=== PATIENT | male | born 1945 | race Caucasian/White ===

== ENCOUNTER 2020-07-10 11:27 | Emergency (ER) | payer MEDICARE, OTHER ==
--- NOTE | 2020-07-10 12:24 | EDM.PDOC ---
ED HPI GENERAL MEDICAL PROBLEM - General Chief Complaint: Respiratory Problem Stated Complaint: congested chest Time Seen by Provider: 07/10/20 11:33 Source of Information: Reports: Patient History Limitations: Reports: No Limitations - History of Present Illness INITIAL COMMENTS - FREE TEXT/NARRATIVE: Patient sent to ER from [facility] to have deep suction to clear secretions from b ronchial area. History of ALS. Cannot truly cough any more. They are usually able to get the secretions cleared at [facility] but couldn't quite do it today. No acute changes otherwise. Has not had any symptoms of infection/fever/etc. - Related Data Allergies Allergy/AdvReac Type Severity Reaction Status Date / Time No Known Allergies Allergy Verified 07/10/20 11:28 ED ROS GENERAL - Review of Systems Review Of Systems: See Below Constitutional: Reports: Weakness (chronic), Fatigue (chronic). Denies: Fever, Chills, Malaise HEENT: Denies: Throat Swelling Respiratory: Reports: Other (bronchial secretions/chronic/difficult to clear today). Denies: Wheezing, Pleuritic Chest Pain Cardiovascular: Denies: Chest Pain GI/Abdominal: Denies: Abdominal Pain, Diarrhea, Nausea, Vomiting Neurological: Reports: Weakness (chronic) ED EXAM, GENERAL - Physical Exam Exam: See Below Exam Limited By: No Limitations General Appearance: Alert, No Apparent Distress, Thin Eye Exam: Bilateral Eye: EOMI, PERRL Ears: Hearing Grossly Normal Nose: No: Nasal Flaring Throat/Mouth: Normal Lips, Normal Voice Head: Atraumatic, Normocephalic Neck: Supple Respiratory/Chest: Rhonchi. No: Wheezing, Accessory Muscle Use, Retractions Cardiovascular: Tachycardia GI/Abdominal: Soft, Non-Tender, No Distention (Male) Exam: Deferred Rectal (Males) Exam: Deferred Extremities: Normal Capillary Refill Neurological: Alert, Oriented, Normal Cognition Psychiatric: Normal Affect, Normal Mood Skin Exam: Warm, Dry, Intact, Normal Color Course - Vital Signs Last Recorded V/S: Last Vital Signs Temp 36.6 C 07/10/20 11:29 Pulse 110 H 07/10/20 11:29 Resp 28 H 07/10/20 11:29 BP 125/89 07/10/20 11:29 Pulse Ox 93 L 07/10/20 11:29 - Re-Assessments/Exams Free Text/Narrative Re-Assessment/Exam: 07/10/20 14:28 Nursing staff performed several attempts at suction with very good results. Patient felt back to baseline/much improved. Does say that his heart rate "runs high" and it appears that the 100-105 pulse is normal for him. Continues to deny any other acute changes. Happily engaged in conversation regarding football and favorite teams and players. No further work up indicated at this time. To follow up as needed if any new changes/problems develop. Departure - Departure Time of Disposition: 12:23 Disposition: DC/Tfer to SNF 03 Condition: Good Clinical Impression: Difficulty clearing secretions - Discharge Information *PRESCRIPTION DRUG MONITORING PROGRAM REVIEWED*: Not Applicable *COPY OF PRESCRIPTION DRUG MONITORING REPORT IN PATIENT DONNA: Not Applicable Referrals: Eufemia Luz PA [Primary Care Provider] - Forms: ED Department Discharge Additional Instructions: Follow up as needed if condition changes/problem returns Sepsis Event Note (ED) - Evaluation Sepsis Screening Result: No Definite Risk - Focused Exam Vital Signs: Vital Signs Temp Pulse Resp BP Pulse Ox 07/10/20 11:29 36.6 C 110 H 28 H 125/89 93 L
== END 2020-07-10 13:00 ==
LOC: LL.ED 11:27
DX: R91.8 Other nonspecific abnormal finding of lung field (principal); R00.0 Tachycardia, unspecified
CPT/HCPCS: 99283

== ENCOUNTER 2020-07-24 15:18 | Emergency (ER) | payer MEDICARE, OTHER ==
--- NOTE | 2020-07-24 15:46 | EDM.PDOC ---
ED HPI GENERAL MEDICAL PROBLEM - General Chief Complaint: Abdominal Pain Stated Complaint: esau moura, constipation Time Seen by Provider: 07/24/20 15:35 Source of Information: Reports: Patient History Limitations: Reports: No Limitations - History of Present Illness INITIAL COMMENTS - FREE TEXT/NARRATIVE: Patient sent here due to abdominal discomfort present for approx one week. No good bowel movement for two weeks. Had suppository and only a few small hard pieces stool passed. Nurse at [facility] apparently 'didn't want do' enema to see if that would help and instead sent him to the ER today. He has had similar episode in past that was determined to be due to constipation that eventually cleared. Mild nausea. No fevers/chills. No HEENT changes. No new SOB/cough/wheeze. Always has some difficulty breathing due to weakness from ALS. No vomiting. No passing of blood. No other new pain complaint. ALS symptoms stable. Patient tachycardic. Reports usual pulse at rest is 100-105 Abdominal Pain Score (Numeric/FACES): 10 - Related Data Allergies Allergy/AdvReac Type Severity Reaction Status Date / Time No Known Allergies Allergy Verified 07/24/20 15:37 Past Medical History HEENT History: Reports: Allergic Rhinitis, Cataract, Glaucoma, Other (See Below) Other HEENT History: nasal congestion, dry mouth Gastrointestinal History: Reports: GERD, Other (See Below) Other Gastrointestinal History: colitis Musculoskeletal History: Reports: Back Pain, Chronic, Other (See Below) Other Musculoskeletal History: muscle weakness, ALS, Quadriplegia, muscle spasm Neurological History: Reports: Other (See Below) Other Neuro History: idiopathic neuropathies,restless legs,ALS Psychiatric History: Reports: Anxiety, Depression, Other (See Below) Other Psychiatric History: anorexia, insomnia Hematologic History: Reports: Anemia Oncologic (Cancer) History: Reports: Other (See Below) 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 Denies: Fever HEENT: Denies: Sinus Problem, Throat Pain, Vision Change Respiratory: Reports: Shortness of Breath (chronic/unchanged). Denies: Wheezing, Pleuritic Chest Pain, Cough, Sputum, Hemoptysis Cardiovascular: Denies: Chest Pain, Palpitations, Syncope GI/Abdominal: Reports: Abdominal Pain (all quadrants), Constipation, Decreased Appetite, Difficulty Swallowing (chronic), Mucous in Stool. Denies: Distension, Hematemesis, Hematochezia, Vomiting : Reports: No Symptoms Musculoskeletal: Reports: Other (no acute changes from baseline) Skin: Reports: No Symptoms Neurological: Reports: Pre-Existing Deficit (ALS), Weakness (chronic). Denies: Change in Speech Psychiatric: Reports: No Symptoms ED EXAM, GENERAL - Physical Exam Exam: See Below Exam Limited By: Other (Patient sitting in wheelchair.) General Appearance: Alert, No Apparent Distress, Thin Eye Exam: Bilateral Eye: EOMI, PERRL Ears: Hearing Grossly Normal Nose: No: Nasal Deformity, Nasal Swelling, Nasal Drainage Throat/Mouth: Normal Lips, Normal Voice, No Airway Compromise Head: Atraumatic, Normocephalic Neck: Supple Respiratory/Chest: No Respiratory Distress, Lungs Clear Cardiovascular: No Murmur, Tachycardia GI/Abdominal: Tender (tender per patient all 4 quadrants), Abnormal Bowel Sounds (diminished). No: Guarding, Rigid, Rebound (Male) Exam: Deferred Rectal (Males) Exam: Deferred Back Exam: No: CVA Tenderness (L), CVA Tenderness (R) Extremities: Normal Capillary Refill Neurological: Alert, Oriented, Normal Cognition, Other (generalized weakness and muscle wasting from ALS) Psychiatric: Normal Affect, Normal Mood Skin Exam: Warm, Dry, Intact, Normal Color Course - Vital Signs Last Recorded V/S: Last Vital Signs Temp 37.0 C 07/24/20 15:18 Pulse 120 H 07/24/20 15:18 Resp 20 07/24/20 15:18 BP 113/86 07/24/20 15:18 Pulse Ox 92 L 07/24/20 15:18 - Orders/Labs/Meds Orders: Active Orders 24 hr Category Date Time Status Abdomen 1V Upright [CR] Stat Exams 07/24/20 15:23 Ordered CBC WITH AUTO DIFF [HEME] Stat Lab 07/24/20 15:41 Ordered COMPREHENSIVE METABOLIC PN,CMP [CHEM] Stat Lab 07/24/20 15:41 Ordered LACTIC ACID [CHEM] Stat Lab 07/24/20 15:41 Ordered - Re-Assessments/Exams Free Text/Narrative Re-Assessment/Exam: 07/24/20 15:50 Upright abdomen xray obtained while patient sitting in wheelchair. Air/fluid levels noted, gaseous distention. Abdominal palpation reveals diffuse tenderness, however no guarding/rebound noted. 07/24/20 16:01 Discussed films with Radiology and they agree that current xray is consistent with patient's story of not having good bowel movement for two weeks. Agreed that next step would be to have patient receive enema(s) to promote bowel movement. Recommended to have repeat imaging in 48 hours to see if things have improved. Consider CT if problem worsens despite this course of therapy. Patient is relatively immobile due to his ALS and is also on daily morphine,both of which contribute to his chronic constipation. Departure - Departure Time of Disposition: 16:07 Disposition: DC/Tfer to SNF 03 Condition: Good Clinical Impression: Constipation Qualifiers: Constipation type: unspecified constipation type Qualified Code(s): K59.00 - Constipation, unspecified - Discharge Information *PRESCRIPTION DRUG MONITORING PROGRAM REVIEWED*: Not Applicable *COPY OF PRESCRIPTION DRUG MONITORING REPORT IN PATIENT DONNA: Not Applicable Referrals: Eufemia Luz PA [Primary Care Provider] - Additional Instructions: Recommend changing Miralax to once a day. Patient NEEDS to work with OT to develop a system for him to be able to access and drink water FREELY in order to stay hydrated. He cannot use his hands and currently has been relying on staff to offer to assist whenever he needs to drink. This is unfair to the patient and he reports that he is not getting enough to drink on a daily basis. Chronic dehydration contributes to chronic constipation. Miralax will not work if you don't drink enough water. Soap suds enema tonight when he returns to [facility]. Repeat it 1 hour later. Repeat it again tomorrow morning after breakfast. OK to make PRN order for soap suds enema once every three days as needed for constipation. He is to drink one bottle of Mag Citrate when he gets back tonight to help promote bowel movement. If symptoms improve he is to have follow up xray Saturday to recheck appearance of abdomen. Arrange for this with primary provider. If current plan does not work and symptoms continue will need to look at abdominal/pelvic CT and further workup. May need to consider endoscopy to rule out cancerous lesion/colon pathology. Sepsis Event Note (ED) - Evaluation Sepsis Screening Result: No Definite Risk - Focused Exam Vital Signs: Vital Signs Temp Pulse Resp BP Pulse Ox 07/24/20 15:18 37.0 C 120 H 20 113/86 92 L - My Orders Last 24 Hours: My Active Orders 07/24/20 15:23 Abdomen 1V Upright [CR] Stat 07/24/20 15:41 CBC WITH AUTO DIFF [HEME] Stat COMPREHENSIVE METABOLIC PN,CMP [CHEM] Stat LACTIC ACID [CHEM] Stat - Assessment/Plan Last 24 Hours: My Active Orders 07/24/20 15:23 Abdomen 1V Upright [CR] Stat 07/24/20 15:41 CBC WITH AUTO DIFF [HEME] Stat COMPREHENSIVE METABOLIC PN,CMP [CHEM] Stat LACTIC ACID [CHEM] Stat
[2020-07-24] MEDS ORDERED: Magnesium Citrate Solution 296 ML Bottle PO ONE (16:07)
== END 2020-07-24 16:55 ==
LOC: LL.ED 15:18
DX: K59.00 Constipation, unspecified (principal); R00.0 Tachycardia, unspecified; R53.1 Weakness
CPT/HCPCS: 74018; 99284; A9270; 99283

== ENCOUNTER 2020-08-09 04:43 | Emergency (ER) | payer MEDICARE, OTHER ==
[2020-08-09] MEDS ORDERED: Sodium Chloride 0.9% 10 ML Syringe FLUSH PRN (05:10)
--- NOTE | 2020-08-09 05:59 | EDM.PDOC ---
ED HPI GENERAL MEDICAL PROBLEM - General Chief Complaint: General Stated Complaint: unable to cough up mucous Time Seen by Provider: 08/09/20 04:45 Source of Information: Reports: Patient, EMS, [facility] Records, Old Records ([facility] EMR. No paper hospital chart available.). Denies: EMS Notes Reviewed (Not available at time of dictation) History Limitations: Reports: No Limitations - History of Present Illness INITIAL COMMENTS - FREE TEXT/NARRATIVE: The patient was brought to the emergency room via ambulance with bankruptcy legal assistant accompaniment with O2 sat of 88 to 89% on room air prior to transfer and 2 L of O2 applied by the bankruptcy legal assistant prior to transfer. The patient has had been having some increasing oral mucus and difficulty breathing secondary to his ALS over the last couple of days with progressive symptoms throughout the day. Note that the patient did have a CT scan in this facility on 08/08 with aspiration pneumonia diagnosed during that evaluation. He has not been placed on antibiotics to this point. The patient denies any chest pain/pressure, heart flutter, dizziness, orthostasis, orthopnea, diaphoresis, paresthesias, recent decreased exercise tolerance, or any other anginal-type symptoms, although note paraplegia secondary to his ALS with no significant activity. No recent history of abdominal pain, heartburn, nausea, diarrhea, melena, gross hematochezia, or any food intolerance, including fatty foods, etc.. He denies any gross hematuria, colic, or other UTI symptoms. The patient also denies any recent fever, wheezing, etc.. He denies any specific pain or discomfort. Onset: Gradual, Unknown/Unsure Onset Date: 08/07/20 Duration: Getting Worse Location: Reports: Other (No pain) Quality: Reports: Same as Previous Episode Improves with: Reports: None Worsens with: Reports: None Context: Reports: Other (As above). Denies: Sick Contact, Trauma Associated Symptoms: Reports: Cough, Shortness of Breath, Weakness (Stable paraplegia). 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 Denies: Hard of Hearing, Impaired Vision, Macular Degeneration, Otitis Media, Retinal Detachment Other HEENT History: Sicca syndrome. Preglaucoma. Cardiovascular History: Denies: Afib, Aneurysm, Arrhythmia, Blood Clots/VTE/DVT, CAD, Heart Failure, Heart Murmur, High Cholesterol, Hypertension, PA, PVD, Syncope Respiratory History: Reports: Pneumonia, Recurrent, Other (See Below). Denies: Asthma, COPD, PE, Pneumothorax, Sleep Apnea, TB Other Respiratory History: Aspiration pneumonia. Gastrointestinal History: Reports: Chronic Constipation, Fecal Incontinence, GERD, Other (See Below). Denies: Bowel Obstruction, Celiac Disease, Cholelithiasis, Colon Polyp, Gastritis, GI Bleed, Inflammatory Bowel Disease, Irritable Bowel Syndrome, PUD Other Gastrointestinal History: Severe constipation secondary to his ALS. History of colitis. Dysphagia secondary to ALS. Genitourinary History: Reports: BPH, Renal Calculus, Retention, Urinary, Urinary Incontinence, Other (See Below). Denies: Acute Renal Failure, Chronic Renal Insuffiency, UTI, Recurrent Other Genitourinary History: Left-sided nephrolithiasis by CT scan in August 2020. Musculoskeletal History: Reports: Arthritis, Back Pain, Chronic, Fracture, Neck Pain, Chronic, Osteoarthritis, Other (See Below). Denies: Gout, RA Other Musculoskeletal History: Diffuse muscular atrophy secondary to ALS. Right distal leg/ankle fracture in December 2013 with surgery as below. Neurological History: Reports: Other (See Below). Denies: Cerebral Aneurysms, Concussion, CVA, Headaches, Chronic, Head Trauma, Migraines, MS, Parkinson's, Seizure, TIA Other Neuro History: idiopathic neuropathies, restless legs, ALS with symptoms beginning in 2013 and final diagnosis in 2019. Psychiatric History: Reports: Anxiety, Depression, Other (See Below). Denies: Abuse, Victim of, ADD, ADHD, Addiction, Psych Hospitalization(s), PTSD, Suicide Attempt, Suicidal Ideation Other Psychiatric History: anorexia, insomnia Endocrine/Metabolic History: Reports: Other (See Below). 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 Hematologic History: Reports: Anemia Oncologic (Cancer) History: Reports: Other (See Below). 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 - Infectious Disease History Infectious Disease History: Reports: Chicken Pox, Measles, Mumps, Rubella. Denies: C-Difficile, Meningitis, Mononucleosis, MRSA, Novel Coronavirus, Pertussis (Whooping Cough), Rheumatic Fever, Scarlet Fever, Shingles, TB, VRE - Past Surgical History Head Surgeries/Procedures: Reports: None HEENT Surgical History: Reports: Cataract Surgery, Oral Surgery, Other (See Below). Denies: Adenoidectomy, Eye Surgery, LASIK, Myringotomy w Tube(s), Naso- Sinus Surgery, Tonsillectomy Other HEENT Surgeries/Procedures: Complete teeth extraction. Bilateral cataract surgery in 2019. Cardiovascular Surgical History: Reports: None. Denies: Varicose Respiratory Surgical History: Reports: None. Denies: Thoracentesis GI Surgical History: Reports: Hernia Repair/Other, Other (See Below). Denies: Appendectomy, Cholecystectomy, Colonoscopy, EGD, Hernia, Abdominal, Hernia, Inguinal, Polypectomy Other GI Surgeries/Procedures: Umbilical hernia repair at age 7. Male Surgical History: Reports: None. Denies: Circumcision, TURP-Transurethral Resection of Prostate, Vasectomy Endocrine Surgical History: Reports: None. Denies: Thyroid Biopsy Neurological Surgical History: Reports: None. Denies: C-Spine, Discectomy, Laminectomy, Lumbar Spine, Scoliosis, Spinal Fusion, Thoracic Spine, Vertebroplasty Musculoskeletal Surgical History: Reports: ORIF, Other (See Below). Denies: Carpal Tunnel, Ganglion Cyst, Joint Replacement, Shoulder Surgery Other Musculoskeletal Surgeries/Procedures:: ORIF of right leg/ankle fracture in December 2013. Oncologic Surgical History: Reports: None Dermatological Surgical History: Reports: None - Past Imaging History Past Imaging History: Reports: CAT Scan (CT scan of the abdomen pelvis on 08/08/2020.) Social & Family History - Family History Family Medical History: No Pertinent Family History - Tobacco Use Tobacco Use Status *Q: Former Tobacco User Tobacco Use Within Last Twelve Months: No Years of Tobacco use: 38 Packs/Tins Daily: 1 Packs/Tins Daily Comment: Smoked between ages 18 and 56. Used Tobacco, but Quit: Yes Smoking Cessation Information Provided To Patient: No Second Hand Smoke Exposure: No Second Hand Smoke Education Provided: No - Caffeine Use Caffeine Use: Reports: Coffee (2 cups/day). Denies: Energy Drinks, Soda, Tea - Alcohol Use Alcohol Use History: Yes Days Per Week of Alcohol Use: 0 Number of Drinks Per Day Comment: Previous daily sixpack of beer with patient denying any previous problems with alcohol, DWIs, etc. Alcohol Use in Last Twelve Months: No - Recreational Drug Use Recreational Drug Use: No Drug Use in Last 12 Months: No Recreational Drug Type: Denies: Amphetamines (Speed), Cocaine, Dextromethorphan (Cough Syrup), Heroin, Inhalants (Glues, Solvents, Aerosols), LSD (Acid), Marijuana/Hashish, Methamphetamine, Morphine, Oxycodone - Living Situation & Occupation Living situation: Reports: (1993, 2 children), Extended Care Facility ([facility]) Occupation: Retired ED ROS GENERAL - Review of Systems Review Of Systems: Comprehensive ROS is negative, except as noted in HPI. ED EXAM, GENERAL - Physical Exam Exam: See Below Exam Limited By: No Limitations General Appearance: Alert, WD/WN, No Apparent Distress, Cachetic (Mild cachexia with moderate diffuse muscular atrophy) Eye Exam: Bilateral Eye: EOMI, Normal Inspection (No nystagmus), PERRL Ears: Normal External Exam, Normal Canal, Hearing Grossly Normal, Normal TMs Nose: Normal Inspection, Normal Mucosa, No Blood Throat/Mouth: Normal Inspection, Normal Lips, Normal Gums, Normal Oropharynx, Normal Voice, No Airway Compromise, Dysphagia, Other (Moderate mucus in the oral cavity which was suctioned). No: Normal Teeth (Complete absent dentition with no dentures today), Perioral Cyanosis Head: Atraumatic, Normocephalic. No: Facial Swelling, Facial Tenderness, Sinus Tenderness Neck: Supple, Non-Tender, Full Range of Motion, Carotid Bruit (Mild bilateral carotid bruits). No: Lymphadenopathy (L), Lymphadenopathy (R), Thyromegaly Respiratory/Chest: No Respiratory Distress, No Accessory Muscle Use, Chest Non- Tender, Rales (Mild bilateral basilar rales). No: Rhonchi, Wheezing, Pleural Rub, Retractions Cardiovascular: Normal Peripheral Pulses, Regular Rate, Rhythm, No Edema, No Gallop, No JVD, No Murmur, No Rub. No: Gallop/S3, Gallop/S4, Friction Rub Peripheral Pulses: 2+: Radial (L), Radial (R), Dorsalis Pedis (L), Dorsalis Pedis (R) GI/Abdominal: Normal Bowel Sounds, Soft, Non-Tender, No Organomegaly, No Distention, No Abnormal Bruit, No Mass. No: Guarding (Male) Exam: Deferred Rectal (Males) Exam: Deferred Back Exam: Normal Inspection. No: Full Range of Motion (Note ALS), CVA Tenderness (L), CVA Tenderness (R), Muscle Spasm (Ductogram okay STAT READ with verbal telephone report from radiologist to this provider sincerely requested. Problem) Extremities: Non-Tender, No Pedal Edema, Normal Capillary Refill, Other (Diffuse muscular atrophy secondary to ALS.). No: Normal Range of Motion (ALS), Herrera's Sign Neurological: Alert, Oriented, CN II-XII Intact, Normal Cognition, Normal Reflexes (Negative Babinski's). No: Normal Gait (Quadriplegia secondary ALS), No Motor/Sensory Deficits (ALS as above) Psychiatric: Normal Affect, Normal Mood Skin Exam: Warm, Dry, Intact, Normal Color, No Rash. No: Diaphoretic, Wound/Incision Lymphatic: No Adenopathy Course - Vital Signs Last Recorded V/S: Last Vital Signs Temp 36.9 C 08/09/20 07:13 Pulse 102 H 08/09/20 07:48 Resp 18 08/09/20 07:48 BP 110/73 08/09/20 07:13 Pulse Ox 94 L 08/09/20 07:48 Vital Signs - 24 hr 08/09/20 08/09/20 08/09/20 04:44 05:19 05:20 Temperature [ 36.6 C Temporal] Pulse, 103 H 99 Peripheral [ Left Pulse Oximetry] Respiratory 20 20 Rate Blood Pressure 107/69 111/73 [Left Upper Arm ] O2 Sat by Pulse 92 L 90 L Oximetry O2 Sat by Pulse 90 L Oximetry [Room Air] 08/09/20 08/09/20 08/09/20 05:36 05:51 06:06 Temperature [ Temporal] Pulse, 103 H 94 94 Peripheral [ Left Pulse Oximetry] Respiratory 20 20 20 Rate Blood Pressure 105/62 105/68 110/68 [Left Upper Arm ] O2 Sat by Pulse 93 L 94 L 94 L Oximetry O2 Sat by Pulse Oximetry [Room Air] 08/09/20 08/09/20 08/09/20 06:36 06:51 07:06 Temperature [ Temporal] Pulse, 102 H 93 94 Peripheral [ Left Pulse Oximetry] Respiratory 20 20 20 Rate Blood Pressure 111/73 110/73 113/71 [Left Upper Arm ] O2 Sat by Pulse 94 L 93 L 94 L Oximetry O2 Sat by Pulse Oximetry [Room Air] 08/09/20 08/09/20 07:13 07:48 Temperature [ 36.9 C Temporal] Pulse, 99 102 H Peripheral [ Left Pulse Oximetry] Respiratory 20 18 Rate Blood Pressure 110/73 [Left Upper Arm ] O2 Sat by Pulse 92 L 94 L Oximetry O2 Sat by Pulse Oximetry [Room Air] - Orders/Labs/Meds Orders: Active Orders 24 hr Category Date Time Status Cardiac Monitoring [RC] CONTINUOUS Care 08/09/20 05:11 Active Communication Order [RC] ROUTINE Care 08/09/20 05:16 Active Oxygen Therapy, ED [RC] CONTINUOUS Care 08/09/20 05:11 Active Peripheral IV Care [RC] . DIRECTED Care 08/09/20 05:11 Active Pulse Oximetry [RC] CONTINUOUS Care 08/09/20 05:11 Active Up With Assistance [RC] ASDIRECTED Care 08/09/20 05:11 Active Nothing Per Oral Diet [DIET] Diet 08/09/20 Breakfast Active Chest 1V Frontal [CR] Stat Exams 08/09/20 05:11 Taken CULTURE BLOOD [BC] Stat Lab 08/09/20 05:30 Received CULTURE BLOOD [BC] Stat Lab 08/09/20 06:45 Received Sodium Chloride 0.9% [Saline Flush] Med 08/09/20 05:10 Active 10 ml FLUSH ASDIRECTED PRN Blood Culture x2 Reflex Set [OM.PC] Urgent Oth 08/09/20 06:40 Ordered Obtain Past Medical Record [OM.PC] Stat Oth 08/09/20 05:11 Active Peripheral IV Insertion Adult [OM.PC] Stat Oth 08/09/20 05:11 Ordered Resuscitation Status Routine Resus Stat 08/09/20 05:10 Ordered Medication Orders Sodium Chloride (Saline Flush) 10 ml FLUSH ASDIRECTED PRN PRN Reason: Keep Vein Open Labs: Laboratory Tests 08/09/20 08/09/20 08/09/20 Range/Units 05:30 05:30 05:30 WBC 15.3 H (4.0-10.2) K/uL RBC 4.46 (4.33-5.41) M/uL Hgb 13.5 D (13.1-16.8) g/dL Hct 42.6 (39.0-49.0) % MCV 95.5 (84.0-98.0) fL MCH 30.3 (28.2-33.3) pg MCHC 31.7 (31.7-36.0) g/dL RDW 13.8 (11.2-14.1) % Plt Count 253 (150-350) K/uL Neut % (Auto) 82.2 H (45.0-80.0) % Lymph % (Auto) 8.6 L (10.0-50.0) % [place] % (Auto) 9.0 (2.0-14.0) % Eos % (Auto) 0.1 (0.0-5.0) % Baso % (Auto) 0.1 (0.0-2.0) % Neut # (Auto) 12.61 H (1.40-7.00) K/uL Lymph # (Auto) 1.32 (0.50-3.50) K/uL [place] # (Auto) 1.38 H (0.00-1.00) K/uL Eos # (Auto) 0.01 (0.00-0.50) K/uL Baso # (Auto) 0.02 (0.00-0.20) K/uL Sodium 138 (136-145) mmol/L Potassium 4.0 (3.5-5.1) mmol/L Chloride 101 (98-107) mmol/L Carbon Dioxide 27.7 (21.0-32.0) mmol/L BUN 12 (7-18) mg/dL Creatinine 0.34 L (0.51-1.17) mg/dL Est Cr Clr Drug Dosing 176.10 mL/min Estimated GFR (MDRD) > 60 mL/min Glucose 95 (74-106) mg/dL Lactic Acid 0.7 (0.4-2.0) mmol/L Calcium 8.5 (8.5-10.1) mg/dL Magnesium 2.1 (1.8-2.4) mg/dL Total Bilirubin 1.6 H (0.2-1.0) mg/dL Direct Bilirubin (0.0-0.2) mg/dL Indirect Bilirubin mg/dL AST 15 (15-37) U/L ALT 10 L (12-78) U/L Alkaline Phosphatase 77 (46-116) IU/L Total Protein 6.8 (6.4-8.2) g/dL Albumin 3.1 L (3.4-5.0) g/dL TSH, Ultra Sensitive 0.962 (0.358-3.740) mIU/mL 08/09/20 Range/Units 05:30 WBC (4.0-10.2) K/uL RBC (4.33-5.41) M/uL Hgb (13.1-16.8) g/dL Hct (39.0-49.0) % MCV (84.0-98.0) fL MCH (28.2-33.3) pg MCHC (31.7-36.0) g/dL RDW (11.2-14.1) % Plt Count (150-350) K/uL Neut % (Auto) (45.0-80.0) % Lymph % (Auto) (10.0-50.0) % [place] % (Auto) (2.0-14.0) % Eos % (Auto) (0.0-5.0) % Baso % (Auto) (0.0-2.0) % Neut # (Auto) (1.40-7.00) K/uL Lymph # (Auto) (0.50-3.50) K/uL [place] # (Auto) (0.00-1.00) K/uL Eos # (Auto) (0.00-0.50) K/uL Baso # (Auto) (0.00-0.20) K/uL Sodium (136-145) mmol/L Potassium (3.5-5.1) mmol/L Chloride (98-107) mmol/L Carbon Dioxide (21.0-32.0) mmol/L BUN (7-18) mg/dL Creatinine (0.51-1.17) mg/dL Est Cr Clr Drug Dosing mL/min Estimated GFR (MDRD) mL/min Glucose (74-106) mg/dL Lactic Acid (0.4-2.0) mmol/L Calcium (8.5-10.1) mg/dL Magnesium (1.8-2.4) mg/dL Total Bilirubin 1.6 H (0.2-1.0) mg/dL Direct Bilirubin 0.4 H (0.0-0.2) mg/dL Indirect Bilirubin 1.2 mg/dL AST (15-37) U/L ALT (12-78) U/L Alkaline Phosphatase (46-116) IU/L Total Protein (6.4-8.2) g/dL Albumin (3.4-5.0) g/dL TSH, Ultra Sensitive (0.358-3.740) mIU/mL Meds: Medications Generic Name Dose Route Start Last Admin Trade Name Freq PRN Reason Stop Dose Admin Sodium Chloride 10 ml 08/09/20 05:10 Saline Flush FLUSH ASDIRECTED PRN Keep Vein Open Discontinued Medications Generic Name Dose Route Start Last Admin Trade Name Freq PRN Reason Stop Dose Admin Ceftriaxone Sodium 1 gm/ 100 mls @ 200 mls/hr 08/09/20 06:41 08/09/20 07:05 Sodium Chloride IV 08/09/20 07:10 200 mls/hr ONETIME ONE Administration - Radiology Interpretation Free Text/Narrative:: Chest x-ray, portable, shows evidence of moderate cardiomegaly with mild left lower lobe pulmonary infiltrates and possible COPD changes with no pneumothorax, CHF, etc. Departure - Departure Time of Disposition: 08:03 Disposition: DC/Tfer to Acute Hospital 02 Condition: Fair Clinical Impression: ALS (amyotrophic lateral sclerosis), Peptic reflux disease, Mixed anxiety depressive disorder, Hyperbilirubinemia, Hypoalbuminemia Constipation Qualifiers: Constipation type: slow transit constipation Qualified Code(s): K59.01 - Slow transit constipation Aspiration pneumonia Qualifiers: Aspiration pneumonia type: due to regurgitated food Laterality: bilateral Lung location: lower lobe of lung Qualified Code(s): J69.0 - Pneumonitis due to inhalation of food and vomit Osteoarthritis Qualifiers: Osteoarthritis location: multiple joints Osteoarthritis type: primary Qualified Code(s): M89.49 - Other hypertrophic osteoarthropathy, multiple sites - Discharge Information *PRESCRIPTION DRUG MONITORING PROGRAM REVIEWED*: Not Applicable *COPY OF PRESCRIPTION DRUG MONITORING REPORT IN PATIENT DONNA: Not Applicable Referrals: PCP,None [Primary Care Provider] - Forms: ED Department Discharge, Interfacility Transfer EMTALA Sepsis Event Note (ED) - Evaluation Sepsis Screening Result: No Definite Risk - Focused Exam Vital Signs: Vital Signs Temp Pulse Resp BP Pulse Ox Pulse Ox 08/09/20 07:48 102 H 18 94 L 08/09/20 07:13 36.9 C 99 20 110/73 92 L 08/09/20 07:06 94 20 113/71 94 L 08/09/20 06:51 93 20 110/73 93 L 08/09/20 06:36 102 H 20 111/73 94 L 08/09/20 06:06 94 20 110/68 94 L 08/09/20 05:51 94 20 105/68 94 L 08/09/20 05:36 103 H 20 105/62 93 L 08/09/20 05:20 99 20 111/73 90 L 08/09/20 05:19 90 L 08/09/20 04:44 36.6 C 103 H 20 107/69 92 L - Problem List & Annotations (1) Aspiration pneumonia SNOMED Code(s): 933208680 Code(s): J69.0 - PNEUMONITIS DUE TO INHALATION OF FOOD AND VOMIT Status: Acute Priority: High Current Visit: Yes Onset Date: ~08/08/20 Annotation/Comment:: Patient was suctioned frequently with persistent hypoxia of 88-89% on room air after this suctioning consistent with findings prior to transfer to this facility. O2 saturations were excellent with 2 L/min by nasal cannula. Note incidental finding of probable bilateral aspiration pneumonia per radiological report of CT scan of the abdomen pelvis on 08/08/2020. Antibiotics had not been started to this point. Blood cultures x2 were drawn with initiation of IV Rocephin thereafter with this therapy to be continued in route by the paramedics. Initial telephone consultation at 6:10 AM and then again at 6:29 AM with the housekeeping manager at the [facility] with no bed available at this time. Subsequent telephone consultation at 6:[address] Bass, hospitalist at [facility] in [place], who does accept the patient for direct admission, with no further treatment recommendations given. Ambulance transfer with bankruptcy legal assistant accompaniment to their [place] campus. Vital signs and clinical exam were stable at time of patient's transfer. Note normal lactic acid level with no clinical evidence of sepsis despite leukocytosis. Qualifiers: Aspiration pneumonia type: due to regurgitated food Laterality: bilateral Lung location: lower lobe of lung Qualified Code(s): J69.0 - Pneumonitis due to inhalation of food and vomit (2) ALS (amyotrophic lateral sclerosis) SNOMED Code(s): 68817343 Code(s): G12.21 - AMYOTROPHIC LATERAL SCLEROSIS Status: Acute Priority: Medium Current Visit: Yes Annotation/Comment:: Stable by history. Note that the patient does have problems clearing his oral secretions with persistent hypoxia despite suctioning as above. Neurological status otherwise stable. (3) Constipation SNOMED Code(s): 63511904 Code(s): K59.00 - CONSTIPATION, UNSPECIFIED Status: Chronic Priority: Medium Current Visit: Yes Annotation/Comment:: Note CT scan of the abdomen and pelvis on 08/08/2020. Stable by history. Qualifiers: Constipation type: slow transit constipation Qualified Code(s): K59.01 - Slow transit constipation (4) Mixed anxiety depressive disorder SNOMED Code(s): 375453655 Code(s): F41.8 - OTHER SPECIFIED ANXIETY DISORDERS Status: Chronic Priority: Medium Current Visit: Yes Annotation/Comment:: Stable by history (5) Osteoarthritis SNOMED Code(s): 641219004 Code(s): M19.90 - UNSPECIFIED OSTEOARTHRITIS, UNSPECIFIED SITE Status: Chronic Priority: Medium Current Visit: Yes Annotation/Comment:: Stable by history with no recent fall or injury. Qualifiers: Osteoarthritis location: multiple joints Osteoarthritis type: primary Qualified Code(s): M89.49 - Other hypertrophic osteoarthropathy, multiple sites (6) Peptic reflux disease SNOMED Code(s): 753007889 Code(s): K21.9 - GASTRO-ESOPHAGEAL REFLUX DISEASE WITHOUT ESOPHAGITIS Status: Chronic Priority: Medium Current Visit: Yes Annotation/Comment:: Stable by history (7) Hyperbilirubinemia SNOMED Code(s): 90308739 Code(s): E80.6 - OTHER DISORDERS OF BILIRUBIN METABOLISM Status: Acute Priority: Medium Current Visit: Yes Onset Date: 08/09/20 Annotation/Comment:: Nonsymptomatic. Observe for now. (8) Hypoalbuminemia SNOMED Code(s): 866779055 Code(s): E88.09 - H DISORDERS OF PLASMA-PROTEIN METABOLISM, NEC Status: Acute Priority: Medium Current Visit: Yes Onset Date: 08/09/20 Annotation/Comment:: Observe for now. - Problem List Review Problem List Initiated/Reviewed/Updated: Yes - My Orders Last 24 Hours: My Active Orders 08/09/20 05:10 Sodium Chloride 0.9% [Saline Flush] 10 ml FLUSH ASDIRECTED PRN Resuscitation Status Routine 08/09/20 05:11 Cardiac Monitoring [RC] CONTINUOUS Oxygen Therapy, ED [RC] CONTINUOUS Peripheral IV Care [RC] . DIRECTED Pulse Oximetry [RC] CONTINUOUS Up With Assistance [RC] ASDIRECTED Chest 1V Frontal [CR] Stat Obtain Past Medical Record [OM.PC] Stat Peripheral IV Insertion Adult [OM.PC] Stat 08/09/20 05:16 Communication Order [RC] ROUTINE 08/09/20 05:30 CULTURE BLOOD [BC] Stat 08/09/20 06:40 Blood Culture x2 Reflex Set [OM.PC] Urgent 08/09/20 06:45 CULTURE BLOOD [BC] Stat 08/09/20 Breakfast Nothing Per Oral Diet [DIET] - Assessment/Plan Last 24 Hours: My Active Orders 08/09/20 05:10 Sodium Chloride 0.9% [Saline Flush] 10 ml FLUSH ASDIRECTED PRN Resuscitation Status Routine 08/09/20 05:11 Cardiac Monitoring [RC] CONTINUOUS Oxygen Therapy, ED [RC] CONTINUOUS Peripheral IV Care [RC] . DIRECTED Pulse Oximetry [RC] CONTINUOUS Up With Assistance [RC] ASDIRECTED Chest 1V Frontal [CR] Stat Obtain Past Medical Record [OM.PC] Stat Peripheral IV Insertion Adult [OM.PC] Stat 08/09/20 05:16 Communication Order [RC] ROUTINE 08/09/20 05:30 CULTURE BLOOD [BC] Stat 08/09/20 06:40 Blood Culture x2 Reflex Set [OM.PC] Urgent 08/09/20 06:45 CULTURE BLOOD [BC] Stat 08/09/20 Breakfast Nothing Per Oral Diet [DIET] Assessment:: As above Plan: As above. Extensive precautions were given to the patient, who is in agreement with the treatment plan. Ambulance transfer to [place] as above.
[2020-08-09 06:05] LABS: CHLORIDE,CL 101 mmol/L (98-107); SODIUM,NA 138 mmol/L (136-145)
[2020-08-09] MEDS ORDERED: cefTRIAXone 1 GM in Sodium Chloride 0.9% 100 ML IV ONE (06:41)
== END 2020-08-09 08:03 ==
LOC: LL.ED 04:43
DX: J69.0 Pneumonitis due to inhalation of food and vomit (principal); G12.21 Amyotrophic lateral sclerosis; K27.9 Peptic ulcer, site unspecified, unspecified as acute or chronic, without hemorrhage or perforation; F41.8 Other specified anxiety disorders; E80.6 Other disorders of bilirubin metabolism; E88.09 Other disorders of plasma-protein metabolism, not elsewhere classified; K59.01 Slow transit constipation; M89.49 Other hypertrophic osteoarthropathy, multiple sites; R64 Cachexia; Z87.891 Personal history of nicotine dependence
CPT/HCPCS: 36415; 71045; 80053; 82247; 82248; 83605; 83735; 84443; 85025; 87040; 96365; 99285-25; J0696